=== PATIENT | female | born 1970 | race Caucasian/White ===

== ENCOUNTER 2025-06-03 10:56 | Outpatient (AMB) | payer OTHER, SELFPAY ==
--- NOTE | 2025-06-03 11:04 | A.OFFPC_ITS ---
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 medications Cabinet Maker Required: No Accompanied by: Self / Same As Patient Allergies No Known Allergies Allergy (Verified 06/03/25 11:17) Medication List - Last Reconciled 06/03/25 by VOLODYMYR Griffin No Known Home Meds Tobacco use date assessed: 06/03/25 Dental Screening Dental Screen Date: 06/03/25 Did you have a dental visit in the last 12 months?: No Did you have a dental problem in the last 6 months where you did not have access to dental care?: No Was dental information given to patient?: Patient has dentist HPI WATCH CRYSTAL EDGE GRINDER review of medications HPI Details Previous [place]: [facility] [place] [facility] Enio Tyler NP, [place] Last visit: 3-4 years ago Last PE: same Specialist: no OBGYN: Needs a referral, implants for control for 5 years Past medical history: 2002, gallbladder out 2002 or 2003, no colonoscopy mammogram about 4 years Medications: Family HX: mother DM diagnosed in her 50s, maternal grandfather had heart problem, father 90 years old, he recently had a pacemaker placed Problem: The patient is a 55-year-old female presenting to [facility] with a new primary care provider for a general health check-up. Her last physical exam was approximately 3-4 years ago. The patient experienced a lapse in her medical care as she was caring for her , who was diagnosed with colon cancer. The patient has a history of heavy uterine bleeding, which was treated with a contraceptive implant about five years ago. She has gone through menopause and reports experiencing hot flashes, mostly at night, for the last two years. She had a cholecystectomy in 2002 or 2003. She denies any history of heart problems or cholesterol issues. Her family history is significant for a mother with diabetes and a grandfather with diabetes and multiple myeloma. Her father is 90 years old and reportedly healthy. [facility] Medical History (Updated 06/03/25 @ 14:00 by VOLODYMYR Griffin) Smoker Abnormal uterine bleeding FH: cholecystectomy Family History Father Heart disease Mother Diabetes mellitus Maternal Grandfather Heart disease Social History Alcohol intake: current Patient Tobacco Use Status: Current everyday Tobacco user Tobacco use type: Cigarette Cigarette Packs Per Day: 0.5 e-Cigarette/Vaping Use: Never Used Substance Use Type: Marijuana Current occupational status: employed Current occupation: [employer] Cognitive needs: No Hearing needs: No Vision needs: Yes Questionnaire PHQ-9 Over the last 2 weeks, how often have you been bothered by any of the following problems? 1. Little interest or pleasure in doing things: not at all 2. Feeling down, depressed, or hopeless: not at all 3. Trouble falling or staying asleep, or sleeping too much: not at all 4. Feeling tired or having little energy: not at all 5. Poor appetite or overeating: not at all 6. Feeling bad about yourself - or that you are a failure or have let yourself or your family down: not at all 7. Trouble concentrating on things, such as reading the newspaper or watching television: not at all 8. Moving or speaking so slowly that other people could have noticed. Or the opposite - being so fidgety or restless that you have been moving around a lot more than usual: not at all 9. Thoughts that you would be better off or of hurting yourself in some way: not at all Total score: 0 Depression Screening Interpretation: Negative Depression Screening Done: Yes 95480 - PHQ-9 Billing: Yes Source: Developed by Drs. Igor Kinsey, Rebecca Matthews, William Garsia and colleagues, with an educational sebastian from [employer]. Thrive Questionnaire Date Thrive assessed: 06/03/25 I am a: Patient What is your living situation today?: I have a steady place to live Within the past 12 months, did the food you bought not last and you didn't have the money to get more?: Never true Within the past 12 months, did you worry whether your food would run out before you got money to buy more?: Never true Do you have trouble paying for medicines?: No Do you have trouble getting transportation to medical appointments?: No Do you have trouble paying your heating and electricity bill?: No Do you have trouble taking care of your child, family member or friend?: No Do you have trouble with day-to-day activities such as bathing, preparing meals, shopping, managing finances, etc.?: No Are you currently unemployed and looking for a job?: No Are you interested in more education?: No Please select the resources that you would like help with: None Currently or been in a relationship where the following occur: No concerns reported THRIVE Score: 0 AUDIT C Alcohol Use Questionnaire (AUDIT-C) 1. How often do you have a drink containing alcohol?: 2-3 times a week 2. How many drinks containing alcohol do you have on a typical day when you are drinking?: 3 or 4 3. How often do you have six or more drinks on one occasion?: Less than monthly Total Score: 5 IVA-7 AMB Questionnaire IVA-7 Date IVA - 7 assessed: 06/03/25 Feeling nervous, anxious, or on edge: 0 = Not at all Not being able to stop or control worryin = Not at all Worrying too much about different things: 0 = Not at all Trouble relaxin = Not at all Being so restless that it is hard to sit still: 0 = Not at all Becoming easily annoyed or irritable: 0 = Not at all Feeling afraid as if something awful might happen: 0 = Not at all Total IVA-7 score (0-4 normal; 5-9 mild; 10-14 moderate; 15-21 severe): 0 Source: Developed by Drs. Igor Kinsey, Rebecca Matthews, William Garsia and colleagues, with an educational sebastian from [employer]. IVA-7 Assessment Billing IVA-7 Assessment Tool: IVA-7 Assessment 48583 Review of Systems Const Denies headache(s) Eyes Denies loss of vision ENT Denies vertigo, Denies dizziness, Denies headache(s) and Denies sore throat Card Denies chest pain, Denies leg edema and Denies lightheadedness Resp Denies cough, Denies hemoptysis and Denies wheezing GI Denies abdominal pain, Denies melena, Denies constipation, Denies diarrhea and Denies vomiting Denies urinary frequency, Denies dysuria and Denies urinary urgency Musc Denies arthralgias, Denies joint swelling, Denies numbness and Denies tingling Neuro Denies Abnormal speech present, Denies behavioral changes, Denies vertigo, Denies dizziness, Denies headache(s), Denies loss of vision, Denies memory loss, Denies numbness and Denies tingling Psych Denies anxiety, Denies behavioral changes, Denies depression, Denies memory loss and Denies panic attacks Samson/Lymph Denies easy bleeding and Denies easy bruising Aller/Immun Denies wheezing Physical exam (Primary Care) Vital Signs: Last Vital Signs Temp 97.3 F 06/03/25 11:09 Pulse 92 06/03/25 11:09 Resp 18 06/03/25 11:09 BP 122/62 06/03/25 11:09 Pulse Ox 97 06/03/25 11:09 Oxygen Delivery Method Room Air 06/03/25 11:09 BMI result Body Mass Index 26.1 Tobacco/Smoking Status: Tobacco use Status Tobacco use date assessed 06/03/25 06/03/25 11:15 Patient Tobacco Use Status Current everyday Tobacco 06/03/25 11:15 Tobacco use type Cigarette 06/03/25 11:15 e-Cigarette/Vaping Use Never Used 06/03/25 11:15 PHQ-9: PHQ-9 Score PHQ-9: Total score 0 06/03/25 11:24 Depression Screening Interpretation: Negative Thrive Assessment: Date of Thrive Assessment Date Thrive assessed 06/03/25 06/03/25 11:15 Currently or been in a relationship where the following occur: No concerns reported Const General: healthy appearing, no acute distress, alert and awake Nutritional Appearance: well nourished Orientation/consciousness: oriented to person, oriented to place and oriented to time HENMT Ears: TM's normal bilaterally General nose exam: Normal nasal mucous membranes and turbinates present Eyes Conjunctivae: conjunctivae normal Sclerae: sclerae normal Pupils: Equal, round and reactive pupils present Neck Neck: Yes no lymphadenopathy and Yes no JVD Thyroid: Thyroid normal Carotids: no bruits Resp Effort & Inspection: normal respiratory effort and not tachypneic Auscultation: no crackles, no rales, no rhonchi and no wheezes Cardio Rate: regular rate Rhythm: regular rhythm Heart sounds: no murmurs and normal S1 and S2 GI Palpation (GI): Soft to palpation, nontender, no hepatomegaly and no splenomegaly Auscultation: normal bowel sounds Skin General skin exam: no rashes or lesions noted and dry skin Neuro General: oriented to person, oriented to place and oriented to time Cranial nerves: Yes Equal, round and reactive pupils present Speech: No Abnormal speech present Gait exam (Neuro): Normal gait present Motor exam (neuro): no tremor noted Extrem Right upper extremity: full ROM Left upper extremity: full ROM Right lower extremity: full ROM; no edema Left lower extremity: full ROM; no edema Psych Mental Status: mental status grossly normal Speech and movement: Normal speech and movement present Affect: normal affect Attitude: cooperative Thought process: Normal thought process present Coding Level of Care Code New Pt Level 3 (55898) Diagnoses Encounter to establish care with new doctor Z76.89 Abnormal uterine bleeding N93.9 Smoker F17.200 Additional Codes PHQ-9 - 18870 - PHQ-9 Billing: Yes ([id number]) IVA-7 Assessment Billing - IVA-7 Assessment Tool: IVA-7 Assessment 23225 ([id number]) Time Spent (min) 32 Assessment & Plan Assessment & Plan (1) Encounter to establish care with new doctor: Code(s): Z76.89 - Persons encountering health services in other specified circumstances Category: Medical Plan: The patient is establishing care and is due for several health maintenance screenings. She will undergo a comprehensive lab workup. A mammogram, colonoscopy. A referral will be placed for LEASE ADMINISTRATION SUPERVISOR consultation. A follow-up appointment is scheduled in 6-7 weeks to review the lab results. (2) Abnormal uterine bleeding: Code(s): N93.9 - Abnormal uterine and vaginal bleeding, unspecified Category: Medical Plan: The patient has a history of heavy bleeding, for which a contraceptive implant was placed five years ago. A referral to an LEASE ADMINISTRATION SUPERVISOR will be placed for evaluation of her implant and ongoing gynecological care. (3) Smoker: Code(s): F17.200 - Nicotine dependence, unspecified, uncomplicated Category: Social Hx Plan: Encouraged smoking cessation Orders: Orders UA CC w/rflx Micro + Cult Today Z00.00 - Encounter for general adult medical examination without abnormal findings Vitamin D 25-OH Total Today Z00.00 - Encounter for general adult medical examination without abnormal findings MM tomosynthesis screening BI Today Z12.31 - Encounter for screening mammogram for malignant neoplasm of breast Hemoglobin A1c Today Z00.00 - Encounter for general adult medical examination without abnormal findings Complete Blood Count Auto Diff Today Z00.00 - Encounter for general adult medical examination without abnormal findings Comprehensive [place]. Panel Fast Today Z00.00 - Encounter for general adult medical examination without abnormal findings Lipid Panel Today Z00.00 - Encounter for general adult medical examination without abnormal findings TSH reflex Free T4 Today Z00.00 - Encounter for general adult medical examination without abnormal findings Referrals LEASE ADMINISTRATION SUPERVISOR Referral N93.9 - Abnormal uterine and vaginal bleeding, unspecified, Z01.419 - Encounter for gynecological examination (general) (routine) without abnormal findings Gastroenterology Referral Z12.11 - Encounter for screening for malignant neoplasm of colon, Z12.12 - Encounter for screening for malignant neoplasm of rectum
[2025-06-03 11:09] VITALS: BP 122/62; PULSE 92; RESP 18; TEMP 36.3; O2SAT 97; BMI 26.1
== END 2025-06-03 11:37 | disposition home or self-care (01) ==
LOC: HO.HMCH 10:57
DX: Z76.89 Persons encountering health services in other specified circumstances (principal); N93.9 Abnormal uterine and vaginal bleeding, unspecified; F17.200 Nicotine dependence, unspecified, uncomplicated

== ENCOUNTER → 2025-06-03 10:56 | Outpatient (BNVA) | payer OTHER, SELFPAY | DX: N95.1 Menopausal and female climacteric states (principal); R23.2 Flushing; N93.9 Abnormal uterine and vaginal bleeding, unspecified; F17.210 Nicotine dependence, cigarettes, uncomplicated; Z76.89 Persons encountering health services in other specified circumstances | CPT/HCPCS: 96127 ==

== ENCOUNTER 2025-07-15 08:03 | Outpatient (REF) | payer OTHER, SELFPAY | END 2025-07-15 08:04 | disposition home or self-care (01) | LOC: HO.LNP 08:03 | PROVIDERS: Visit Provider Obstetrics & Gynecology | DX: Z01.419 Encounter for gynecological examination (general) (routine) without abnormal findings (principal); Z30.432 Encounter for removal of intrauterine contraceptive device | CPT/HCPCS: 58301; 87626; 88175 ==

== ENCOUNTER 2025-07-15 08:03 | Outpatient (AMB) | payer OTHER, SELFPAY ==
[2025-07-15 08:05] VITALS: BP 120/66; BMI 26.0
--- NOTE | 2025-07-15 08:05 | MHC.OFFVIS ---
Vital Signs 07/15/25 08:05 Height 5 ft 3 in Weight 147 lb BMI 26.0 BP 120/66 Blood Pressure Location Lt brachial Position Sitting Intake Visit Reasons: Well-woman Allergies No Known Allergies Allergy (Verified 07/15/25 08:07) HPI Comments Details: Presenting for annual exam. No complaints. The patient had Mirena IUD put in 5 years ago since then no bleeding Last Pap/HPV was many years ago Last Mammogram was many years ago No previous screening Colonoscopy PFSH Medical History Smoker Abnormal uterine bleeding FH: cholecystectomy Family History Father Heart disease Mother Diabetes mellitus Maternal Grandfather Heart disease Social History Alcohol intake: current Patient Tobacco Use Status: Current everyday Tobacco user Tobacco use type: Cigarette Cigarette Packs Per Day: 0.5 e-Cigarette/Vaping Use: Never Used Substance Use Type: Marijuana Current occupational status: employed Current occupation: [employer] Cognitive needs: No Hearing needs: No Vision needs: Yes Female Reproductive History Menstrual control method: progestin IUCD Total pregnancies: 3 Number of Living Children: 1 Ab induced: 2 Review of Systems Const All systems reviewed & are unremarkable except as noted in HPI and below Card Reports as per HPI Resp Reports as per HPI GI Reports as per HPI and Reports no additional complaints Reports as per HPI Physical Exam Vital Signs: Last Vital Signs BP 120/66 07/15/25 08:05 BMI result Body Mass Index 26.0 Const General: cooperative, healthy appearing and comfortable Chest Chest palpation & inspection: normal inspection of the chest and normal palpation of entire chest wall Breast/axilla inspection: normal inspection of the breasts and normal inspection of the axillae Breast/axilla palpation: normal palpation of the breasts, normal palpation of the axillae and no axillary lymphadenopathy Resp Effort & Inspection: normal respiratory effort Auscultation: clear to auscultation bilaterally Percussion: percussion normal Cardio Palpation: normal PMI Rate: regular rate Rhythm: regular rhythm Heart sounds: no murmurs and no rubs Peripheral pulses: Peripheral pulses 2+ throughout GI Inspection: Yes normal to inspection Palpation (GI): Soft to palpation, nontender, no guarding, not rigid and No hepatosplenomegaly present Percussion: Yes normal to percussion Auscultation: normal bowel sounds Rectal Exam - Female: deferred General: Yes bladder normal to palpation External Female Exam: No lesion Speculum Exam - Vagina: normal appearance of the vagina, normal palpation, normal vaginal discharge and not erythematous Speculum Exam - Cervix: normal appearance of the cervix, normal palpation and Other cervical findings present (IUD string in place) Bimanual exam- vagina & uterus: normal bimanual exam, normal palpation, uterine size normal, bladder normal to palpation, consistency normal and normal palpation Bimanual Exam- Adnexa, other: normal adnexae, no masses and no tenderness Office Procedures IUD Insert/Removal Details Details: Counseling/Consent: After discussing with the patient the risks of the procedure including bleeding, infection, scar tissue formation, , possible injury to blood vessels or nerves, chronic arm pain, blood transfusion, and irregular unpredictable bleeding Alternative options were discussed with the patient including but not limited: Do nothing. The patient signed the consent and agreed with the plan; all questions answered. Urine test was done in the office and was negative Preop dx: Requesting IUD removal Op: IUD removal Post op dx: same EBL= 10 cc Procedure: The patient was put in the dorsal lithotomy position a speculum was inserted in the vagina the IUD thread identified. Using a Caterina clamp the thread was grasped and the IUD pulled out with no complications. The patient tolerated the procedure well and was advised to use a different method for contraception. Discharge instructions: Instructions were given to the pt to call if temp>100.4, abdominal pain heavy vaginal bleeding, n/v occur. The patient verbalized understanding and all questions answered. This note was generated with a voice recognition program. Some errors may have been overlooked during the review of this note. Sometimes these errors may affect the content or meaning of a given sentence. 43979-XPH Removal Procedure code (CPT) selection complete Assessment & Plan Assessment & Plan (1) Well woman exam: Code(s): Z01.419 - Encounter for gynecological examination (general) (routine) without abnormal findings Category: Medical Plan: Co testing done. Counseled the patient about the recommended dietary allowance of 1200 mg of Calcium & 600 IU of vitamin D. Mammogram ordered by PCP. The patient was referred to GI by PCP for screening colonoscopy . The patient was instructed to perform monthly self-breast exams and schedule annual exam in a year. All questions answered and the patient verbalized understanding. (2) Encounter for IUD removal: Code(s): Z30.432 - Encounter for removal of intrauterine contraceptive device Category: Medical Plan: Explained to the patient is since she is 55 has not had any vaginal bleeding last 5 years, statistically she is in menopause recommended IUD removal. The patient has agreed. IUD removed, see procedure note. Instructions given to patient to call in case of vaginal bleeding Coding Level of Care Code New Pt Level 4 (05822) Procedure Only Diagnoses Well woman exam Z01.419 Encounter for IUD removal Z30.432 CPT Codes Details - CPT: 45001-MIC Removal ([id number])
== END 2025-07-15 08:32 | disposition home or self-care (01) ==
LOC: HO.HWS 08:04
PROVIDERS: Visit Provider Obstetrics & Gynecology
DX: Z01.419 Encounter for gynecological examination (general) (routine) without abnormal findings (principal); Z30.432 Encounter for removal of intrauterine contraceptive device
CPT/HCPCS: 58301; 99396; 99459